=== PATIENT | female | born 1995 ===

== ENCOUNTER 2024-05-19 09:50 | Outpatient (AMB) | payer OTHER, SELFPAY ==
--- NOTE | 2024-05-19 09:53 | MHC.PC.OV ---
Vital Signs 05/19/24 09:54 Height 5 ft 2.25 in Weight 232 lb BMI 42.1 BP 124/70 Blood Pressure Location Rt brachial Pulse 89 Pulse Source Pulse Oximeter Temp 97.8 F Pulse Oximetry (%) 98 Intake Visit Reasons: follow up Intake Note: no issues Allergies No Known Allergies Allergy (Verified 05/19/24 10:54) Medication List - Last Reconciled 05/19/24 by Nora Mcdonald PA-C No Known Home Meds Dental Screening Did you have a dental visit in the last 12 months?: No Did you have a dental problem in the last 6 months where you did not have access to dental care?: No Was dental information given to patient?: Yes [facility] Medical History (Updated 05/19/24 @ 12:06 by Nora Mcdonald PA-C) Establishing care with new doctor, encounter for Obesity, morbid, BMI 40.0-49.9 Cervical cancer screening Screening for HPV (human papillomavirus) Family history of rectal cancer Colon cancer screening Family History Mother Rectal cancer Maternal Grandmother Skin cancer Social History Patient Tobacco Use Status: Never used Tobacco e-Cigarette/Vaping Use: Never Used Second Hand Smoke Exposure: No service: No Current occupational status: employed Current occupational exposures/hazards: No Cognitive needs: No Hearing needs: No Vision needs: No Female Reproductive History Menstrual control method: none History of abnormal pap smear: No History of STI: No History of abnormal mammogram: No Physical exam (Primary Care) Vital Signs: Last Vital Signs Temp 97.8 F 05/19/24 09:54 Pulse 89 05/19/24 09:54 BP 124/70 05/19/24 09:54 Pulse Ox 98 05/19/24 09:54 Care Plan Goal for BP management: <130/80 BMI result Body Mass Index 42.1 BMI Assessment/Plan discussion: High BMI High, discussed plan: lifestyle, weight reduction, dietary, physical activity and alcohol moderation Coding Level of Care Code New Pt Level 4 (34111) Complex EM visit Add On G2211 Diagnoses Obesity, morbid, BMI 40.0-49.9 E66.01 Cervical cancer screening Z12.4 Screening for HPV (human papillomavirus) Z11.51 Family history of rectal cancer Z80.0 Colon cancer screening Z12.11 Establishing care with new doctor, encounter for Z76.89 Assessment & Plan Assessment & Plan (1) Obesity, morbid, BMI 40.0-49.9: Code(s): E66.01 - Morbid (severe) obesity due to excess calories Category: Medical Plan: Patient is a improve her diet and exercise regimen. Condition is chronic and stable continue to monitor. (2) Cervical cancer screening: Code(s): Z12.4 - Encounter for screening for malignant neoplasm of cervix Category: Medical Plan: Patient has not has cervical cancer screening or HPV screening. Will refer to mortgage loan reviewer. (3) Screening for HPV (human papillomavirus): Code(s): Z11.51 - Encounter for screening for human papillomavirus (HPV) Category: Medical Plan: Patient has not has cervical cancer screening or HPV screening. Will refer to mortgage loan reviewer. (4) Family history of rectal cancer: Code(s): Z80.0 - Family history of malignant neoplasm of digestive organs Category: Medical Plan: Patient with a family history of rectal cancer. Mother had rectal cancer. Mother still alive. Patient denies any GI related complaints, black or bloody stools, unintentional weight loss or any abdominal pain or any other symptoms complaints or concerns. Will refer to Gastroenterology for further evaluation and management. (5) Colon cancer screening: Code(s): Z12.11 - Encounter for screening for malignant neoplasm of colon Category: Medical Plan: Will refer to plywood factory worker for further evaluation management. (6) Establishing care with new doctor, encounter for: Code(s): Z76.89 - Persons encountering health services in other specified circumstances Category: Medical Plan: Patient had a normal exam today. Plan Plan Patient was informed and verbally consented to the use of an ambient scribe for clinic note documentation during this visit. 1. Establish Primary Care And Routine Screening The patient is referred to a plywood factory worker for a colonoscopy screening due to her family cancer history. She is also referred to a hoist cylinder loader for routine cervical cancer screening and mammography due to familial risk factors. The importance of these screenings, given her family history, is emphasized. Follow-up is suggested in six months to continue monitoring her health and any developments. Discussion Notes During the consultation, I discussed with the patient the significance of establishing a primary care routine given her long lapse without such care. I addressed her familial predisposition to certain cancers, notably her mother's anal cancer and grandmother's breast and skin cancer. Recommendations for a gastrointestinal evaluation, gynecological consultation, and mammogram were shared to ensure comprehensive preventive care. The patient was counseled on the potential risks and benefits of early screening, especially concerning her mother's cancer diagnosis age. Additionally, the scheduling plan for follow-up visits was outlined with a focus on ongoing surveillance. Orders: Orders MM screening mammo BI Today Z12.31 - Encounter for screening mammogram for malignant neoplasm of breast Referrals REGIONAL PSYCHIATRIC DIRECTOR Referral Z11.51 - Encounter for screening for human papillomavirus (HPV), Z12.4 - Encounter for screening for malignant neoplasm of cervix Gastroenterology Referral Z12.11 - Encounter for screening for malignant neoplasm of colon, Z80.0 - Family history of malignant neoplasm of digestive organs Patient Instructions: Patient Instructions - Schedule and attend a colonoscopy appointment with a referred plywood factory worker - Arrange a gynecology appointment for routine screenings, including a Pap smear and HPV test - Schedule a mammogram based on family history of breast cancer - Follow up with us in six months or sooner if any changes in health or new symptoms develop - Maintain a healthy lifestyle and monitor any health changes, especially concerning gastrointestinal or breast symptoms - Contact us for any concerns or changes in your health or family history Scribe Plan - Not visible on output: History of Present Illness The patient is a 29-year-old female presenting to establish primary care. She has not had a primary healthcare provider since her pediatric days with Dr. Dunham. She expresses a desire to start routine screenings, particularly in light of her family history of cancer, with her mother having had anal cancer and her grandmother with breast and skin cancer. The patient is asymptomatic with no current health complaints but acknowledges her family's cancer history, which motivates her concern for proper surveillance moving forward. The patient was offered blood work although patient adamantly refusing/declining reports she has a phobia to needles. She declined medication to help assist the blood draw. She would not like any blood drawn until she is having any symptoms or she feels like it is absolutely necessary. Social History - Lives with Female devyn? - Engaged, planning to in November 2022 - Works in [employer] Review of Systems - Gastrointestinal: Denies black or bloody stools, unintentional weight loss - Urinary: Denies frequency or urgency Physical Exam Appearance: Alert. Oriented X3. No acute distress. Head: Normal external exam. Normocephalic. Atraumatic. Eyes: Pupils are equal, round, and reactive to light. Extraocular movements intact. Conjunctiva and sclera normal. Eyelids normal. Ears: External auditory canal normal. Tympanic membranes normal. Throat: Pharynx normal. Uvula midline. Moist mucous membranes. Neck: Normal inspection. Neck supple. Full range of motion. No adenopathy. Thyroid Normal. No meningeal signs. No neck mass noted. Cardiovascular: Normal heart rate and rhythm. Heart sound normal. No murmurs noted. Pulses normal throughout. Respiratory: No respiratory distress. Painless inspiration. Breath sounds normal. No wheezes/rales/rhonchi noted. Chest nontender. No accessory muscle usage noted or decreased air movement noted. Abdomen: Soft and nontender. Bowel sounds normal in all 4 quadrants. No distention noted. No organomegaly noted. No visible injury noted. Back: No costovertebral angle tenderness. Full range of motion noted. Skin: Skin warm and dry. Normal skin color. Normal skin turgor. No rashes/lesions/lacerations noted. New tattoo noted, wrapped and healing. Extremities: No lower extremity edema. Extremities exhibit normal range of motion. Extremities nontender. Neuro: Oriented X 3. No motor deficit. No sensory deficit. Reflexes normal.
[2024-05-19 09:54] VITALS: BP 124/70; PULSE 89; TEMP 36.6; O2SAT 98; BMI 42.1
== END 2024-05-19 10:15 | disposition home or self-care (01) ==
LOC: HO.HMCSH 09:50
PROVIDERS: PCP Internal Medicine; Visit Provider Physician Assistant Medical
DX: E66.01 Morbid (severe) obesity due to excess calories (principal); Z12.4 Encounter for screening for malignant neoplasm of cervix; Z11.51 Encounter for screening for human papillomavirus (HPV); Z80.0 Family history of malignant neoplasm of digestive organs; Z12.11 Encounter for screening for malignant neoplasm of colon; Z76.89 Persons encountering health services in other specified circumstances

== ENCOUNTER → 2024-05-19 09:50 | Outpatient (BNVA) | payer OTHER, SELFPAY | PROVIDERS: PCP Internal Medicine; Visit Provider Physician Assistant Medical ==